=== PATIENT | male | born 1980 | race American Indian/Alaskan Native ===

== ENCOUNTER 2017-01-21 07:45 | Emergency (ER) | payer OTHER ==
[2017-01-21 07:51] VITALS: RESP 18; TEMP 98; O2SAT 98; BMI 31.3
--- NOTE | 2017-01-21 08:29 | ED PDOC ---
Arrival/HPI - General Chief Complaint: Back Pain Time Seen by Provider: 01/21/17 07:51 Historian: Patient - History of Present Illness Narrative History of Present Illness (Text): 01/21/17 08:29 A 37 year old male, whose past medical sciatica, presents to the emergency department complaining of R sided lower back pain for the past 2-3 days. Patient notes radiating pain down back of right leg. Patient denies any trauma, injury, fever, chills, nausea, vomiting, diarrhea, abdominal pain, frequency, dysuria, hematuria, urinary/bowel incontinence, chest pain, shortness of breath or any other complaints. States has had similar pain in the past and was informed it was sciatica and states it was resolved after injection in buttocks. States he did not follow up after that ER visit. Time/Duration: Other (2-3 days) Symptom Course: Unchanged Quality: Other Context: Other Past Medical History - Provider Review Nursing Documentation Reviewed: Yes - Infectious Disease Hx of Infectious Diseases: None - Psychiatric Hx Substance Use: No - Anesthesia Hx Anesthesia Reactions: No Hx Malignant Hyperthermia: No Family/Social History - Physician Review Nursing Documentation Reviewed: Yes Family/Social History: No Known Family HX Smoking Status: Never Smoked Hx Alcohol Use: Yes Frequency of alcohol use: Socially Hx Substance Use: No Allergies/Home Meds Allergies/Adverse Reactions: Allergies No Known Allergies Allergy (Verified 11/11/15 21:53) Review of Systems - Physician Review All systems were reviewed & negative as marked: Yes - Review of Systems Constitutional: absent: Fevers, Night Sweats Respiratory: absent: SOB Cardiovascular: absent: Chest Pain Gastrointestinal: absent: Abdominal Pain, Diarrhea, Nausea, Vomiting Genitourinary Male: absent: Dysuria, Frequency, Hematuria, Other (Urinary/bowel incontinence) Musculoskeletal: Back Pain (Lower back pain radiating to groin and right leg) Physical Exam - Physical Exam Narrative Physical Exam (Text): Constitutional: No acute distress. Head: Normocephalic. Atraumatic. Eyes: PERRL. ENT: Moist mucous membranes. Neck: Supple. Cardiovascular: Regular rate. Chest: No tenderness. Respiratory: Clear to auscultation bilaterally. GI: Soft. Nontender. Nondistended. Back: Right lower lumbar tenderness. No midline tenderness. No CVA tenderness. Musculoskeletal: No tenderness or swelling of extremities. Skin: No rash. Neurologic: Alert, no focal deficit. 5/5 strength x 4. Sensation to light touch to bilateral lower extremities and saddle area. Vital Signs Reviewed: Yes Vital Signs Temp Pulse Resp BP Pulse Ox 01/21/17 09:03 76 18 146/79 98 01/21/17 07:46 98 F 80 18 141/70 98 Temperature: Afebrile Blood Pressure: Normal Pulse: Regular Respiratory Rate: Normal Appearance: Positive for: Well-Appearing, Non-Toxic, Comfortable Pain Distress: None Mental Status: Positive for: Alert and Oriented X 3 Medical Decision Making ED Course and Treatment: 01/21/17 08:29 Impression: A 37 year old male with lower back pain radiating to right lower extremity. Plan: -- Toradol -- Reassess and disposition Progress Notes: 01/21/17 08:57 On re-evaluation, patient feels better and is in no acute distress. I have discussed the plan with the patient, who expresses understanding. Patient in agreement with plan to be discharged home. Patient is stable for discharge. Patient was instructed to follow up with physician or return if symptoms worsen or new concerning symptoms arise. - Medication Orders Current Medication Orders: Discontinued Medications Ketorolac Tromethamine (Toradol) 60 mg IM STAT STA Stop: 01/21/17 08:28 Last Admin: 01/21/17 08:51 Dose: 60 mg - Scribe Statement The provider has reviewed the documentation as recorded by the Deandre Medel Provider Scribe Attestation: All medical record entries made by the Pabloibyoung were at my direction and personally dictated by me. I have reviewed the chart and agree that the record accurately reflects my personal performance of the history, physical exam, medical decision making, and the department course for this patient. I have also personally directed, reviewed, and agree with the discharge instructions and disposition. Disposition/Present on Arrival - Present on Arrival Any Indicators Present on Arrival: No History of DVT/PE: No History of Uncontrolled Diabetes: No Urinary Catheter: No History of Decub. Ulcer: No History Surgical Site Infection Following: None - Disposition Have Diagnosis and Disposition been Completed?: Yes Diagnosis: Back pain Disposition: HOME/ ROUTINE Disposition Time: 08:57 Patient Plan: Discharge Condition: STABLE Discharge Instructions (ExitCare): Sciatica (ED) Prescriptions: Ibuprofen [Motrin] 600 mg PO Q6 #25 tab Referrals: PCP,NO [Primary Care Provider] - Follow up with primary
[2017-01-21 09:04] VITALS: BP 146/79; PULSE 76
== END 2017-01-21 09:05 | disposition home or self-care (01) ==
LOC: ED 07:45
DX: M54.5 Low back pain (principal)
CPT/HCPCS: 96372; 99282; J1885

== ENCOUNTER 2017-07-19 14:35 | Emergency (ER) | payer MEDICAID, OTHER ==
[2017-07-19 14:36] VITALS: BMI 31.3
[2017-07-19 14:51] VITALS: BP 120/68; PULSE 67; RESP 18; TEMP 98.6; O2SAT 99
--- NOTE | 2017-07-19 15:10 | ED PDOC ---
Arrival/HPI - General Chief Complaint: Back Pain Time Seen by Provider: 07/19/17 14:50 Historian: Patient - History of Present Illness Narrative History of Present Illness (Text): 07/19/17 15:07 pt p/w + 2 days onset of persistent lower back pain, at most pain is 10/10; worse with walking/changing position; pt states he was just going back to the gym 3 days ago and did some workouts and the day after felt worsening lower back pain; pt states back pain is mostly left lower back and radiates to left leg ending at the back of the left knee; pt also describes mild right lower back pain without radiation of pain to lower leg; pt states hx of sciatica and today's pain reminds him of it; pt states no fever/chills/sweats, no cp/sob/ palpitations, no abd pain, no n/v, no numbness/tingling, no urinary/bowel changes, no incontinence, no rectal/vaginal numbness/tingling, no wade/neck pain, no fall/trauma/sick contact, no travel; pt is able to ambulate but with some difficulties; pt is here for further eval; pt's without other complaints 07/19/17 15:49 07/19/17 16:04 07/19/17 16:09 pt is right hand dominate 07/19/17 17:15 Time/Duration: < week (2 days) Symptom Onset: Sudden Symptom Course: Unchanged Quality: Tightness Severity Level: 10, Severe Activities at Onset: Other (working out) Context: Home Past Medical History - Provider Review Nursing Documentation Reviewed: Yes - Travel History Have you recently traveled outside [place] w/in the past 3 mons?: No - Past History Past History: No Previous - Infectious Disease Hx of Infectious Diseases: None - Cardiac Hx Cardiac Disorders: No - Pulmonary Hx Respiratory Disorders: No - Neurological Hx Neurological Disorder: No - HEENT Hx HEENT Disorder: Yes Hx Glaucoma: Yes - Renal Hx Renal Disorder: No - Endocrine/Metabolic Hx Endocrine Disorders: No - Hematological/Oncological Hx Blood Disorders: No - Integumentary Hx Dermatological Disorder: No - Musculoskeletal/Rheumatological Hx Musculoskeletal Disorders: No - Gastrointestinal Hx Gastrointestinal Disorders: No - Genitourinary/Gynecological Hx Genitourinary Disorders: No - Psychiatric Hx Psychophysiologic Disorder: No Hx Substance Use: No - Anesthesia Hx Anesthesia: Yes Hx Anesthesia Reactions: No Hx Malignant Hyperthermia: No Family/Social History - Physician Review Nursing Documentation Reviewed: Yes Family/Social History: No Known Family HX Smoking Status: Never Smoked Hx Alcohol Use: Yes Hx Substance Use: No Allergies/Home Meds Allergies/Adverse Reactions: Allergies No Known Allergies Allergy (Verified 07/19/17 14:46) Review of Systems - Review of Systems Constitutional: Normal Eyes: Normal ENT: Normal Respiratory: Normal Cardiovascular: Normal Gastrointestinal: Normal Genitourinary Male: Normal Musculoskeletal: Back Pain Skin: Normal Neurological: Normal Endocrine: Normal Hemo/Lymphatic: Normal Psychiatric: Normal Physical Exam Vital Signs Reviewed: Yes (WNL) Vital Signs Temp Pulse Resp BP Pulse Ox 07/19/17 14:49 98.6 F 67 18 120/68 99 Temperature: Afebrile Blood Pressure: Normal Pulse: Regular Respiratory Rate: Normal Appearance: Positive for: Well-Appearing, Non-Toxic, Other (uncomfortable, NAD, resting in bed, alert/awake, GCS = 15, oriented x 3, + cooperative) Pain Distress: None Mental Status: Positive for: Alert and Oriented X 3 - Systems Exam Head: Present: Atraumatic, Normocephalic Pupils: Present: PERRL, Other (visual field intact b/l, no photophobia, sclera anicteric; no nystagmus) Extroacular Muscles: Present: EOMI Conjunctiva: Present: Normal Ears: Present: Normal Mouth: Present: Moist Mucous Membranes, Normal Teeth, Other (no drooling/stridor , no exudate/lesions) Pharnyx: Present: Normal Nose (External): Present: Atraumatic Nose (Internal): Present: Normal Inspection Neck: Present: Normal Range of Motion, Trachea Midline, Other (no step off, no midline tenderness, no nuchal rigidity, no meningeal signs; no gross deformities ). No: MIDLINE TENDERNESS Respiratory/Chest: Present: Clear to Auscultation, Good Air Exchange. No: Respiratory Distress, Accessory Muscle Use Cardiovascular: Present: Regular Rate and Rhythm, Normal S1, S2. No: Murmurs Abdomen: Present: Normal Bowel Sounds. No: Tenderness, Distention, Peritoneal Signs Back: Present: Other (+ left lower paralumbar tenderness, no midline tenderness , no step off; no gross deformities) Upper Extremity: Present: Normal Inspection, Normal ROM, NORMAL PULSES, Neurovascularly Intact, Capillary Refill < 2s. No: Cyanosis, Edema Lower Extremity: Present: Normal Inspection, NORMAL PULSES, Neurovascularly Intact, Capillary Refill < 2 s, Other (intact ROM, + left lower SLR ~ 35- 40degrees, + able to bear weight with ease, + ambulatory, neurovasc intact b/l) . No: Edema Neurological: Present: GCS=15, CN II-XII Intact, Speech Normal Skin: Present: Warm, Dry, Normal Color. No: Rashes Psychiatric: Present: Alert, Oriented x 3, Normal Insight, Normal Concentration Medical Decision Making ED Course and Treatment: 07/19/17 15:08 Impression: back pain i have consider all the differential diagnosis regarding pt's chief medical complaints/clinical findings, including but are not limited to: back pain, unlikely infectious; atrumatic A/P: back pain - pain control - observe - supportive care 07/19/17 15:58 pt is made aware of his medical results pt is encouraged no heavy lifting pt is encouraged no prolonged standing pt will f/u as directed pt will be discharged home Re-evaluation Time: 15:00 Reassessment Condition: Improving,but remains with symptoms - Medication Orders Current Medication Orders: Discontinued Medications Ketorolac Tromethamine (Toradol) 30 mg IM STAT STA Stop: 07/19/17 15:08 Last Admin: 07/19/17 15:39 Dose: 30 mg MAR Pain Assessment Document 07/19/17 15:39 EQ (Rec: 07/19/17 15:39 EQ [id number]) Pain Reassessment Is this a pain reassessment? No Sleep Is patient sleeping during reassessment? No Presence of Pain Presence of Pain Yes Pain Scale Used Pain Scale Used Numeric IM Administration Charges Document 07/19/17 15:39 EQ (Rec: 07/19/17 15:39 EQ [id number]) Charges for Administration # of IM Administrations 1 Disposition/Present on Arrival - Present on Arrival Any Indicators Present on Arrival: No History of DVT/PE: No History of Uncontrolled Diabetes: No Urinary Catheter: No History of Decub. Ulcer: No History Surgical Site Infection Following: None - Disposition Have Diagnosis and Disposition been Completed?: Yes Diagnosis: Back pain Disposition: HOME/ ROUTINE Disposition Time: 15:09 Patient Plan: Discharge Condition: STABLE Discharge Instructions (ExitCare): Acute Low Back Pain (ED) Print Language: THAI Additional Instructions: Make sure to see your doctor in 1-2 days DRINK PLENTY OF FLUIDS take your medications as prescribed AVOID heavy lifting AVOID prolonged standing RETURN TO ED IF worse pain, cant breath, persistent vomiting, high fever >101- 102 for hours, altered behavior, unable to urinate, heavy/persistent bleeding, passing out, chest pain, or other medical emergencies Prescriptions: Diazepam [Valium] 2 mg PO TID #12 tablet Ibuprofen [Motrin] 400 mg PO QID #30 tab oxyCODONE/Acetaminophen [Percocet 5/325 mg Tab] 1 tab PO QID #12 tab Referrals: Dennis Anderson MD [Staff Provider] - Follow up with primary Forms: [employer] (Romanian)
== END 2017-07-19 15:40 | disposition home or self-care (01) ==
LOC: ED 14:35
DX: M54.5 Low back pain (principal)
CPT/HCPCS: 96372; 99282; J1885